=== PATIENT | female | born 1985 | race Caucasian/White ===

== ENCOUNTER 2018-01-18 14:00 | Emergency (ER) | payer OTHER ==
[2018-01-18] MEDS ORDERED: NORMAL SALINE 1000 ML 1,000 ML IV ONE (15:11)
[2018-01-18] MEDS ORDERED: ONDANSETRON HCL INJ/PF 4 MG/2 ML SDV IV ONE (15:11)
--- NOTE | 2018-01-18 15:12 | ER Document Report ---
ED Medical Screen (RME) - General Chief Complaint: Nausea/Vomiting/Diarrhea Stated Complaint: VOMITING Time Seen by Provider: 01/18/18 15:10 Notes: Patient states about 2 weeks ago her and her 5 children all had "a stomach bug". She states ever since she has had intermittent abdominal pain and vomiting. She states today the pain and vomiting became severe. TRAVEL OUTSIDE OF THE [place] IN LAST 30 DAYS: No - Related Data Allergies/Adverse Reactions: No Known Allergies Allergy (Verified 01/18/18 14:01) Physical Exam - Vital signs Vitals: Temp Pulse Resp BP Pulse Ox 97.6 F 64 20 148/80 H 96 01/18/18 14:14 01/18/18 14:14 01/18/18 14:14 01/18/18 14:14 01/18/18 14:14 Course - Vital Signs Vital signs: Temp Pulse Resp BP Pulse Ox 97.6 F 64 20 148/80 H 96 01/18/18 14:14 01/18/18 14:14 01/18/18 14:14 01/18/18 14:14 01/18/18 14:14
[2018-01-18 16:32] LABS: ABSOLUTE MONOCYTES (AUTO) 0.1 10^3/uL (0.1-1.4); ABSOLUTE NEUT (AUTO) 8.2 10^3/uL (1.7-8.2); BASOPHILS % (AUTO) 0.2 % (0-2); HEMATOCRIT 44.7 % (36.0-47.0); LYMPHOCYTES % (AUTO) 10.4 % (13-45); MEAN CORPUSCULAR HEMOGLOBIN 29.2 pg (27.0-33.4); MEAN CORPUSCULAR HGB CONC 33.5 g/dL (32.0-36.0); MEAN CORPUSCULAR VOLUME 87 fl (80-97); MONOCYTES % (AUTO) 1.1 % (3-13); PLATELET COUNT 314 10^3/uL (150-450); RED BLOOD COUNT 5.12 10^6/uL (3.72-5.28); SEGMENTED NEUTROPHILS % (AUTO) 88.3 % (42-78); TOTAL CELLS COUNTED % (AUTO) 100 %; WHITE BLOOD COUNT 9.3 10^3/uL (4.0-10.5)
[2018-01-18 16:57] LABS: ALANINE AMINOTRANSFERASE 38 U/L (9-52); ALBUMIN 5.2 g/dL (3.5-5.0); ALKALINE PHOSPHATASE 68 U/L (38-126); ANION GAP 18 (5-19); ASPARTATE AMINO TRANSFERASE 33 U/L (14-36); BILIRUBIN,DIRECT 0.5 mg/dL (0.0-0.4); BLOOD UREA NITROGEN 12 mg/dL (7-20); CALCIUM 10.8 mg/dL (8.4-10.2); CARBON DIOXIDE 18 mmol/L (22-30); CHLORIDE 107 mmol/L (98-107); GLUCOSE 130 mg/dL (75-110); POTASSIUM 4.5 mmol/L (3.6-5.0); SODIUM 143.3 mmol/L (137-145); TOTAL PROTEIN 8.6 g/dL (6.3-8.2)
[2018-01-18 17:33] VITALS: BP 152/80
--- NOTE | 2018-01-18 18:41 | ER Document Report ---
ED General - General Mode of Arrival: Ambulatory Information source: Patient TRAVEL OUTSIDE OF THE [place] IN LAST 30 DAYS: No <ARIAN BOLDEN - Last Filed: 01/18/18 18:48> <ALVAREZ JON - Last Filed: 01/18/18 23:43> - General Chief Complaint: Nausea/Vomiting/Diarrhea Stated Complaint: VOMITING Time Seen by Provider: 01/18/18 15:10 Notes: Patient is a 32 year old male presenting to the emergency department complaining of multiple symptoms including abdominal pain, vomiting and diarrhea onset 2 weeks ago worsening today. Patient states approximately 2 weeks ago her and her 5 children had a 24 hour bug. Patient states her symptoms have persisted and worsened further stating she has been vomiting all day. Patient denies any hematuria, hematemesis, blood in stool or fevers. Patient states she has a chronic history of GI problems further stating she has a sensitive stomach. Patient states she had a endoscopy performed and nothing has been found. (ARIAN BOLDEN) - Related Data Allergies/Adverse Reactions: No Known Allergies Allergy (Verified 01/18/18 14:01) Past Medical History - General Information source: Patient - Social History Smoking Status: Never Smoker Chew tobacco use (# tins/day): No Frequency of alcohol use: Rare Drug Abuse: Marijuana Family History: Reviewed & Not Pertinent Patient has suicidal ideation: No Patient has homicidal ideation: No <ARIAN BOLDEN - Last Filed: 01/18/18 18:48> Review of Systems - Review of Systems Constitutional: No symptoms reported EENT: No symptoms reported Cardiovascular: No symptoms reported Respiratory: No symptoms reported Gastrointestinal: See HPI, Abdominal pain, Diarrhea, Nausea, Vomiting Genitourinary: No symptoms reported Female Genitourinary: No symptoms reported Musculoskeletal: No symptoms reported Skin: No symptoms reported Hematologic/Lymphatic: No symptoms reported Neurological/Psychological: No symptoms reported -: Yes All other systems reviewed and negative <ARIAN BOLDEN - Last Filed: 01/18/18 18:48> Physical Exam <ARIAN BOLDEN - Last Filed: 01/18/18 18:48> <ALVAREZ JON - Last Filed: 01/18/18 23:43> - Vital signs Vitals: Temp Pulse Resp BP Pulse Ox 97.6 F 64 20 148/80 H 96 01/18/18 14:14 01/18/18 14:14 01/18/18 14:14 01/18/18 14:14 01/18/18 14:14 - Notes Notes: GENERAL: Alert, interacts well. No acute distress. HEAD: Normocephalic, atraumatic. EYES: Pupils equal, round, and reactive to light. Extraocular movements intact. ENT: Oral mucosa moist, tongue midline. NECK: Full range of motion. Supple. Trachea midline. LUNGS: Clear to auscultation bilaterally, no wheezes, rales, or rhonchi. No respiratory distress. HEART: Regular rate and rhythm. No murmurs, gallops, or rubs. ABDOMEN: Soft, non-tender. Non-distended. Bowel sounds present in all 4 quadrants. EXTREMITIES: Moves all 4 extremities spontaneously. NEUROLOGICAL: Alert and oriented x3. Normal speech. PSYCH: Normal affect, normal mood. SKIN: Warm, dry, normal turgor. No rashes or lesions noted. (ARIAN BOLDEN) Course - Laboratory Result Diagrams: 01/18/18 16:10 01/18/18 16:10 <ARIAN BOLDEN - Last Filed: 01/18/18 18:48> - Laboratory Result Diagrams: 01/18/18 16:10 01/18/18 16:10 <ALVAREZ JON - Last Filed: 01/18/18 23:43> - Re-evaluation Re-evalutation: 01/18/18 18:54 CBC unremarkable, CMP shows low CO2 at 18, no renal failure, glucose slightly elevated at 130, lipase normal. Patient feeling much better, no further vomiting, able to drink water without difficulty. Patient states that she vomits most mornings when she wakes up, it is always undigested food. Patient is wondering whether or not she may have gastroparesis, I told her that this is a possibility and she will need to follow-up with GI as an outpatient however we can do a trial of Reglan and Benadryl here and she can continue taking it every night at home. Patient will return for any new or concerning symptoms. ( ALVAREZ JON) - Vital Signs Vital signs: Temp Pulse Resp BP Pulse Ox 98.5 F 62 16 152/80 H 100 01/18/18 17:29 01/18/18 17:29 01/18/18 17:29 01/18/18 17:29 01/18/18 17:29 - Laboratory Laboratory results interpreted by me: 01/18/18 01/18/18 16:10 16:10 Seg Neutrophils % 88.3 H Lymphocytes % 10.4 L Monocytes % 1.1 L Carbon Dioxide 18 L Glucose 130 H Calcium 10.8 H Direct Bilirubin 0.5 H Total Protein 8.6 H Albumin 5.2 H Discharge <ARIAN BOLDEN - Last Filed: 01/18/18 18:48> <ALVAREZ JON - Last Filed: 01/18/18 23:43> - Discharge Clinical Impression: Nausea vomiting and diarrhea, Elevated blood pressure reading Condition: Stable Disposition: HOME, SELF-CARE Additional Instructions: I prescribed you Reglan and Benadryl. This will help with your nausea and vomiting if it is caused by gastroparesis. Please take 1 tablet Reglan along with 1 tablet of [id number] Benadryl every night before you go to sleep. If this does not decrease your abdominal pain in your vomiting in the mornings after 1 week please stop taking it. Otherwise follow-up with a primary care physician or a GI doc and see if they will work you up further for gastroparesis. Return to the emergency department for blood in your vomiting, intractable vomiting, fevers, blood in your stool or any new or concerning symptoms. Prescriptions: Metoclopramide HCl [Reglan 10 mg Tablet] 10 mg PO QHS #14 tablet Referrals: ALVAREZ DUMONT MD [ACTIVE STAFF] - Follow up as needed Scribe Attestation: 01/18/18 23:42 I personally performed the services described in the documentation, reviewed and edited the documentation which was dictated to the scribe in my presence, and it accurately records my words and actions. (ALVAREZ JON) Scribe Documentation - Scribe Written by Jeanette:: Jeanette Dickinson, 01/18/2018 18:47 acting as scribe for :: Viola <ARIAN BOLDEN - Last Filed: 01/18/18 18:48>
[2018-01-18] MEDS ORDERED: METOCLOPRAMIDE HCL INJ/PF 10 MG/2 ML SDV IM ONE (18:42)
[2018-01-18] MEDS ORDERED: DIPHENHYDRAMINE HCL 50 MG/ML VIAL IM ONE (18:42)
== END 2018-01-18 19:05 | disposition home or self-care (01) ==
LOC: ER 14:00
DX: R11.2 Nausea with vomiting, unspecified (principal); R19.7 Diarrhea, unspecified; R03.0 Elevated blood-pressure reading, without diagnosis of hypertension; R10.9 Unspecified abdominal pain
CPT/HCPCS: 99284; 96372; 96361; 96374; 36415; 83690; 85025; 80053; J1200; J2765; J2405; J7030

== ENCOUNTER → 2018-03-02 | Outpatient (CLI) | payer OTHER ==
--- NOTE | 2018-03-02 15:12 | RADIOLOGY REPORT (SQ) ---
EXAM DESCRIPTION: NM HIDA SCAN WITH CCK COMPLETED DATE/TIME: 03/02/2018 3:03 pm REASON FOR STUDY: ABD PAIN (R10.9) R10.9 UNSPECIFIED ABDOMINAL PAIN COMPARISON: None. RADIONUCLIDE AND DOSE: DOSAGE RADIONUCLIDE: For 0.6 millicuries Tc99m Mebrofenin. DOSAGE CCK: 1.4 micrograms. DOSAGE MORPHINE: Not required. The route of agent administration: Intravenous TECHNIQUE: Serial imaging right upper quadrant up to 60 minutes following injection of radionuclide. CCK injected after gallbladder visualized. LIMITATIONS: None. FINDINGS: LIVER: Normal visualization without areas of photopenia. INTRA AND EXTRAHEPATIC BILE DUCTS: Normal accumulation of activity. GALLBLADDER: Normal visualization. Calculated Ejection Fraction of 9%. Below the normal value of 35% or greater. PHYSICAL RESPONSE: Patients presenting complaint was not reproduced. OTHER: No other significant finding. IMPRESSION: LOW GALLBLADDER EJECTION FRACTION. EVIDENCE FOR BILIARY DYSKINESIS. NO CYSTIC OR COMMO N DUCT OBSTRUCTION. TECHNICAL DOCUMENTATION: JOB ID: [id number] [employer]- All Rights Reserved Reading location - IP/workstation name: [email or web address]
== END ==
LOC: RAD 12:22
PROVIDERS: ATTEND Internal Medicine Gastroenterology
DX: R10.9 Unspecified abdominal pain (principal)
CPT/HCPCS: 78227; J2805; A9537; Q9969

== ENCOUNTER 2018-05-01 14:50 | Emergency (ER) | payer OTHER ==
[2018-05-01 15:01] VITALS: BP 144/90
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
[2018-05-01] MEDS ORDERED: IBUPROFEN 800 MG TABLET PO ONE (15:36)
--- NOTE | 2018-05-01 15:55 | RADIOLOGY REPORT (SQ) ---
EXAM DESCRIPTION: SHOULDER LEFT 2 OR MORE VIEWS COMPLETED DATE/TIME: 05/01/2018 3:22 pm REASON FOR STUDY: INJURY COMPARISON: None. NUMBER OF VIEWS: Three views. TECHNIQUE: Internal rotation, external rotation, and Y view images acquired of the left shoulder. LIMITATIONS: None. FINDINGS: MINERALIZATION: Normal. BONES: In the age-indeterminate Hill-Sachs compression deformity is present. JOINTS: No dislocation. VISUALIZED LUNGS AND RIBS: No pneumothorax. No rib fracture. SOFT TISSUES: No radiopaque foreign body. OTHER: No other significant finding. IMPRESSION: Age-indeterminate Hill-Sachs compression deformity. Normal glenohumeral alignment. TECHNICAL DOCUMENTATION: JOB ID: [id number] [employer]- All Rights Reserved Reading location - IP/workstation name: [email or web address]
== END 2018-05-01 16:25 | disposition home or self-care (01) ==
LOC: ER 14:50
DX: S42.292A Other displaced fracture of upper end of left humerus, initial encounter for closed fracture (principal); S43.005A Unspecified dislocation of left shoulder joint, initial encounter; F17.200 Nicotine dependence, unspecified, uncomplicated; X50.1XXA Overexertion from prolonged static or awkward postures, initial encounter
CPT/HCPCS: 99283

== ENCOUNTER 2018-06-06 12:28 | Inpatient (IN) | payer OTHER ==
[2018-06-06] MEDS ORDERED: PIPERACILLIN/TAZOBACTAM 3.375 GM VIAL IV ONE ×2 (13:35→21:47)
--- NOTE | 2018-06-06 13:35 | ER Document Report ---
ED Medical Screen (RME) - General Chief Complaint: Puncture Wound Stated Complaint: LEFT FOOT PAIN/STEPPED ON A NAIL Time Seen by Provider: 06/06/18 13:28 Mode of Arrival: Ambulatory Information source: Patient, [facility] Records Notes: 32-year-old female with no reported past medical history presents with left foot pain, swelling and erythema. Patient states that yesterday she stepped on a rahul nail. Tetanus is up-to-date. I have greeted and performed a rapid initial assessment of this patient. A comprehensive ED assessment and evaluation of the patient, analysis of test results and completion of medical decision making process we will be contacted by additional ED providers. PHYSICAL EXAMINATION: GENERAL: Well-appearing, well-nourished and in no acute distress. HEAD: Atraumatic, normocephalic. EYES: Pupils equal round extraocular movements intact, conjunctiva are normal. ENT: Nares patent NECK: Normal range of motion LUNGS: No respiratory distress Musculoskeletal: Left foot with puncture wound on the plantar aspect with erythematous streaking up the leg. NEUROLOGICAL: Normal speech, normal gait. PSYCH: Normal mood, normal affect. SKIN: Warm, Dry, normal turgor, no rashes or lesions noted. TRAVEL OUTSIDE OF THE [place] IN LAST 30 DAYS: No - HPI Onset: Yesterday Onset/Duration: Sudden Quality of pain: Achy, Throbbing Severity: Mild Associated Symptoms: denies: Fever Exacerbated by: Movement, Walking Relieved by: Denies Similar symptoms previously: No Recently seen / treated by doctor: No - Related Data Smoking: Non-smoker Frequency of alcohol use: None Drug Abuse: None Allergies/Adverse Reactions: No Known Allergies Allergy (Verified 06/06/18 13:26) Past Medical History - Social History Chew tobacco use (# tins/day): No Frequency of alcohol use: None Drug Abuse: Marijuana Renal/ Medical History: Denies: Hx Peritoneal Dialysis Physical Exam - Vital signs Vitals: Temp Pulse Resp BP Pulse Ox 97.8 F 91 16 126/86 H 100 06/06/18 12:54 06/06/18 12:54 06/06/18 12:54 06/06/18 12:54 06/06/18 12:54 Course - Vital Signs Vital signs: Temp Pulse Resp BP Pulse Ox 97.8 F 91 16 126/86 H 100 06/06/18 12:54 06/06/18 12:54 06/06/18 12:54 06/06/18 12:54 06/06/18 12:54 Doctor's Discharge - Discharge Referrals: ALVAREZ DUMONT MD [Primary Care Provider] - Follow up as needed
[2018-06-06 14:14] LABS: ABSOLUTE EOSINOPHILS # (AUTO) 0.1 10^3/uL (0.0-0.6); ABSOLUTE LYMPHOCYTES (AUTO) 1.8 10^3/uL (0.5-4.7); ABSOLUTE MONOCYTES (AUTO) 0.5 10^3/uL (0.1-1.4); ABSOLUTE NEUT (AUTO) 8.4 10^3/uL (1.7-8.2); BASOPHILS % (AUTO) 0.2 % (0-2); EOSINOPHILS % (AUTO) 0.7 % (0-6); HEMATOCRIT 44.9 % (36.0-47.0); LYMPHOCYTES % (AUTO) 17.1 % (13-45); MEAN CORPUSCULAR HGB CONC 33.5 g/dL (32.0-36.0); MEAN CORPUSCULAR VOLUME 90 fl (80-97); MONOCYTES % (AUTO) 4.4 % (3-13); PLATELET COUNT 225 10^3/uL (150-450); RED BLOOD COUNT 5.02 10^6/uL (3.72-5.28); RED CELL DISTRIBUTION WIDTH 13.2 % (11.5-14.0); SEGMENTED NEUTROPHILS % (AUTO) 77.6 % (42-78); TOTAL CELLS COUNTED % (AUTO) 100 %; WHITE BLOOD COUNT 10.8 10^3/uL (4.0-10.5)
[2018-06-06] MEDS ORDERED: HYDROMORPHONE HCL INJ/PF 2 MG/ML AMPULE IV ONE (14:38)
[2018-06-06] MEDS ORDERED: ONDANSETRON HCL INJ/PF 4 MG/2 ML SDV IV ONE (14:38)
[2018-06-06 14:43] LABS: ALANINE AMINOTRANSFERASE 31 U/L (9-52); ALBUMIN 5.4 g/dL (3.5-5.0); ALKALINE PHOSPHATASE 63 U/L (38-126); ANION GAP 19 (5-19); ASPARTATE AMINO TRANSFERASE 23 U/L (14-36); BILIRUBIN,DIRECT 0.3 mg/dL (0.0-0.4); BILIRUBIN,TOTAL 0.9 mg/dL (0.2-1.3); BLOOD UREA NITROGEN 9 mg/dL (7-20); CALCIUM 9.9 mg/dL (8.4-10.2); CARBON DIOXIDE 23 mmol/L (22-30); CHLORIDE 104 mmol/L (98-107); GLUCOSE 95 mg/dL (75-110); POTASSIUM 4.2 mmol/L (3.6-5.0); SODIUM 145.8 mmol/L (137-145); TOTAL PROTEIN 8.9 g/dL (6.3-8.2)
[2018-06-06] MEDS ORDERED: VANCOMYCIN HCL INJ 1000 MG VIAL IV ONE (14:52)
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
--- NOTE | 2018-06-06 15:35 | RADIOLOGY REPORT (SQ) ---
EXAM DESCRIPTION: FOOT LEFT COMPLETE COMPLETED DATE/TIME: 06/06/2018 3:16 pm REASON FOR STUDY: puncture wound COMPARISON: None. NUMBER OF VIEWS: Three views. TECHNIQUE: AP, lateral and oblique radiographic images acquired of the left foot. LIMITATIONS: None. FINDINGS: MINERALIZATION: Normal. BONES: No acute fracture or dislocation. No worrisome bone lesions. JOINTS: No effusions. SOFT TISSUES: No soft tissue swelling. No foreign body. OTHER: No other significant finding. IMPRESSION: No evidence of retained radiopaque foreign body or acute osseous injury. TECHNICAL DOCUMENTATION: JOB ID: [id number] [employer]- All Rights Reserved Reading location - IP/workstation name: [email or web address]
[2018-06-06] MEDS ORDERED: PROMETHAZINE HCL INJ 25 MG/1 ML VIAL IV PRN (16:22)
[2018-06-06] MEDS ORDERED: TEMAZEPAM 7.5 MG CAPSULE PO PRN (16:22)
[2018-06-06] MEDS ORDERED: IPRATROPIUM/ALBUTEROL 0.5-2.5 MG/3 ML AMPUL NEB PRN (16:22)
[2018-06-06] MEDS ORDERED: ACETAMINOPHEN 325 MG TABLET PO PRN (16:22)
[2018-06-06] MEDS ORDERED: VANCOMYCIN HCL 0 MG in DEXTROSE 5%-WATER 250 ML IV NR (16:30)
[2018-06-06] MEDS ORDERED: VANCOMYCIN HCL 1,500 MG in DEXTROSE 5%-WATER 250 ML IV ONE (17:00)
[2018-06-06] MEDS ORDERED: VANCOMYCIN HCL INJ 1000 MG VIAL IV PRN (17:10)
[2018-06-06] MEDS ORDERED: VANCOMYCIN HCL 1,750 MG in DEXTROSE 5%-WATER 500 ML IV ONE (18:00)
[2018-06-06] MEDS ORDERED: PIPERACILLIN SODIUM/TAZOBACTAM 3.375 GM in NORMAL SALINE 100 ML IV SCH (18:00)
--- NOTE | 2018-06-06 18:01 | PDOC H&P ---
History of Present Illness Admission Date/PCP: 06/06/18 15:54 ALVAREZ DUMONT Patient complains of: Swelling and pain left foot History of Present Illness: EDGAR HAILE is a 32 year old female Patient presents emergency room with complaints of stepping on a nail yesterday was barefoot she says she normally goes barefoot due to neuropathy. She pulled the nail out and then she started to notice some redness and swelling this morning at the site extending posteriorly to her ankle. There is no fever nausea vomiting. Tetanus shot is apparently up-to-date. She denies any other significant medical history. Foot x-ray reveals no significant findings Past Medical History Cardiac Medical History: Reports: Other - Neuropathy Past Surgical History Past Surgical History: Reports: None Social History Information Source: Patient Smoking Status: Never Smoker - Advance Directive Resuscitation Status: Full Code Family History Family History: Reviewed & Not Pertinent Parental Family History Reviewed: Yes Children Family History Reviewed: NA Sibling(s) Family History Reviewed.: NA Medication/Allergy Home Medications: Dextroamphetamine/Amphetamine [Adderall 20 mg Tablet] 1 tab PO DAILYP PRN Allergies/Adverse Reactions: No Known Allergies Allergy (Verified 06/06/18 15:58) Review of Systems All systems: reviewed and no additional remarkable complaints except as stated Physical Exam Vital Signs: Temp Pulse Resp BP Pulse Ox 97.8 F 91 16 126/86 H 98 06/06/18 12:54 06/06/18 12:54 06/06/18 12:54 06/06/18 12:54 06/06/18 17:06 General appearance: PRESENT: no acute distress, well-developed, well-nourished Head exam: PRESENT: atraumatic, normocephalic Eye exam: PRESENT: conjunctiva pink, EOMI, PERRLA. ABSENT: scleral icterus Ear exam: PRESENT: normal external ear exam Mouth exam: PRESENT: moist, tongue midline Neck exam: ABSENT: carotid bruit, JVD, lymphadenopathy, thyromegaly Respiratory exam: PRESENT: clear to auscultation gabo. ABSENT: rales, rhonchi, wheezes Cardiovascular exam: PRESENT: RRR. ABSENT: diastolic murmur, rubs, systolic murmur Pulses: PRESENT: normal dorsalis pedis pul Vascular exam: PRESENT: normal capillary refill GI/Abdominal exam: PRESENT: normal bowel sounds, soft. ABSENT: distended, guarding, mass, organolmegaly, rebound, tenderness Rectal exam: PRESENT: deferred Extremities exam: PRESENT: full ROM, tenderness, other - Surrounding erythema and tenderness around the mid foot on the plantar aspect with spreading lymphangitis towards the left heel. ABSENT: calf tenderness, clubbing, pedal edema Neurological exam: PRESENT: alert, awake, oriented to person, oriented to place , oriented to time, oriented to situation, CN II-XII grossly intact. ABSENT: motor sensory deficit Psychiatric exam: PRESENT: appropriate affect, normal mood. ABSENT: homicidal ideation, suicidal ideation Skin exam: PRESENT: dry, intact, warm. ABSENT: cyanosis, rash Results Laboratory Results: 06/06/18 13:40 06/06/18 13:40 MCV 90 fl (80-97) 06/06/18 13:40 MCH 30.0 pg (27.0-33.4) 06/06/18 13:40 MCHC 33.5 g/dL (32.0-36.0) 06/06/18 13:40 RDW 13.2 % (11.5-14.0) 06/06/18 13:40 Seg Neutrophils % 77.6 % (42-78) 06/06/18 13:40 Lymphocytes % 17.1 % (13-45) 06/06/18 13:40 Monocytes % 4.4 % (3-13) 06/06/18 13:40 Eosinophils % 0.7 % (0-6) 06/06/18 13:40 Basophils % 0.2 % (0-2) 06/06/18 13:40 Absolute Neutrophils 8.4 10^3/uL (1.7-8.2) H 06/06/18 13:40 Absolute Lymphocytes 1.8 10^3/uL (0.5-4.7) 06/06/18 13:40 Absolute Monocytes 0.5 10^3/uL (0.1-1.4) 06/06/18 13:40 Absolute Eosinophils 0.1 10^3/uL (0.0-0.6) 06/06/18 13:40 Absolute Basophils 0.0 10^3/uL (0.0-0.2) 06/06/18 13:40 Chloride 104 mmol/L (98-107) 06/06/18 13:40 Carbon Dioxide 23 mmol/L (22-30) 06/06/18 13:40 Anion Gap 19 (5-19) 06/06/18 13:40 Est GFR ( Amer) > 60 (>60) 06/06/18 13:40 Est GFR (Non-Af Amer) > 60 (>60) 06/06/18 13:40 Glucose 95 mg/dL (75-110) 06/06/18 13:40 Calcium 9.9 mg/dL (8.4-10.2) 06/06/18 13:40 Total Bilirubin 0.9 mg/dL (0.2-1.3) 06/06/18 13:40 AST 23 U/L (14-36) 06/06/18 13:40 ALT 31 U/L (9-52) 06/06/18 13:40 Alkaline Phosphatase 63 U/L (38-126) 06/06/18 13:40 Total Protein 8.9 g/dL (6.3-8.2) H 06/06/18 13:40 Albumin 5.4 g/dL (3.5-5.0) H 06/06/18 13:40 Impressions: Foot X-Ray 06/06/18 13:34 IMPRESSION: No evidence of retained radiopaque foreign body or acute osseous injury. Assessment & Plan - Diagnosis (1) Cellulitis of left foot Is this a current diagnosis for this admission?: Yes Plan: Continue with vancomycin and Zosyn started in the emergency room. Surgical consult has been requested for further evaluation. (2) Lymphangitis Is this a current diagnosis for this admission?: Yes Plan: Pain management - Time Time Spent: 30 to 50 Minutes Medications reviewed and adjusted accordingly: Yes Anticipated discharge: Home Within: within 48 hours - Inpatient Certification Based on my medical assessment, after consideration of the patient's comorbidities, presenting symptoms, or acuity I expect that the services needed warrant INPATIENT care.: Yes Medical Necessity: Need for IV Antibiotics, Risk of Complication if Not Cared For in Hospital
[2018-06-06] MEDS: OXYCODONE-ACETAMINOPHEN 5-325 MG TABLET PO PRN ×2 (18:26→22:37)
[2018-06-06] MEDS: RINGERS SOLUTION,LACTATED 1,000 ML IV PRN (22:40)
[2018-06-06] MEDS: PIPERACILLIN SODIUM/TAZOBACTAM 3.375 GM in NORMAL SALINE 100 ML IV SCH (22:40)
--- NOTE | 2018-06-06 22:58 | PDOC CONSULTATION ---
Consultation Consult Date: 06/06/18 Consult reason:: cellulitis left foot History of Present Illness Admission Date/PCP: 06/06/18 15:54 ALVAREZ DUMONT Patient complains of: left foot pains History of Present Illness: EDGAR HAILE is a 32 year old female who stepped on a nail while walking barefoot yesterday morning. Claims has neuropathy and both feet feels warm all the time that she does not wear shoes because they make her more uncomfortable. Denies DM. Her mother just recently diagnosed with DM. Past Medical History Cardiac Medical History: Reports: Other - Neuropathy Past Surgical History Past Surgical History: Reports: None Social History Smoking Status: Never Smoker Frequency of Alcohol Use: None Hx Recreational Drug Use: Yes - MARIJ[place] Drugs: None Hx Prescription Drug Abuse: No - Advance Directive Resuscitation Status: Full Code Family History Family History: Reviewed & Not Pertinent Parental Family History Reviewed: Yes - mother with DM Children Family History Reviewed: No Sibling(s) Family History Reviewed.: No Medication/Allergy Home Medications: Dextroamphetamine/Amphetamine [Adderall 20 mg Tablet] 1 tab PO DAILYP PRN Allergies/Adverse Reactions: No Known Allergies Allergy (Verified 06/06/18 15:58) Review of Systems Constitutional: PRESENT: other - no fever/chills Eyes: PRESENT: other - no visual /hearing changes Cardiovascular: PRESENT: other - no cough/chest pains Gastrointestinal: PRESENT: other - no pains Genitourinary: PRESENT: other - no dysuria Integumentary: PRESENT: erythema - around puncture site left foot Neurological: PRESENT: other - neuropathy both feet Hematologic/Lymphatic: PRESENT: other - no easy bruising Physical Exam Vital Signs: Temp Pulse Resp BP Pulse Ox 97.9 F 71 17 121/84 100 06/06/18 20:00 06/06/18 20:00 06/06/18 20:00 06/06/18 20:00 06/06/18 20:00 General appearance: PRESENT: no acute distress Head exam: PRESENT: atraumatic Eye exam: PRESENT: conjunctiva pink Mouth exam: PRESENT: moist Neck exam: PRESENT: full ROM Respiratory exam: PRESENT: clear to auscultation gabo Cardiovascular exam: PRESENT: RRR Pulses: PRESENT: normal radial pulses Vascular exam: PRESENT: normal capillary refill GI/Abdominal exam: PRESENT: soft Rectal exam: PRESENT: deferred Extremities exam: PRESENT: other - puncture site midpart of plantar area with surrounding erythema and swollen feet. Short area of reddish streak medial ankle area. Tender on pressure at the puncture site but rest of foot non tender which patient claims from neuropathy Psychiatric exam: PRESENT: appropriate affect Skin exam: PRESENT: erythema - lft foot Results Impressions: Foot X-Ray 06/06/18 13:34 IMPRESSION: No evidence of retained radiopaque foreign body or acute osseous injury. Assessment & Plan - Diagnosis (1) Puncture wound of left foot Is this a current diagnosis for this admission?: Yes - Time Time Spent: 30 to 50 Minutes - Inpatient Certification Medical Necessity: Need for IV Antibiotics, Risk of Complication if Not Cared For in Hospital - Plan Summary Plan Summary: Leg elevation left foot to try to decrease edema Continue IV antibiotics No abscess to drain at this time.
[2018-06-07] MEDS ORDERED: VANCOMYCIN HCL INJ 1000 MG VIAL ONE (01:35)
[2018-06-07] MEDS ORDERED: VANCOMYCIN HCL 1,250 MG in DEXTROSE 5%-WATER 250 ML IV SCH ×4 (02:00)
[2018-06-07] MEDS: OXYCODONE-ACETAMINOPHEN 5-325 MG TABLET PO PRN ×5 (02:38→20:12)
[2018-06-07] MEDS: PIPERACILLIN SODIUM/TAZOBACTAM 3.375 GM in NORMAL SALINE 100 ML IV SCH ×4 (04:46→20:13)
[2018-06-07 06:27] LABS: HEMATOCRIT 37.1 % (36.0-47.0); HEMOGLOBIN 12.2 g/dL (12.0-15.5); MEAN CORPUSCULAR HEMOGLOBIN 29.4 pg (27.0-33.4); MEAN CORPUSCULAR HGB CONC 32.8 g/dL (32.0-36.0); MEAN CORPUSCULAR VOLUME 90 fl (80-97); PLATELET COUNT 171 10^3/uL (150-450); RED BLOOD COUNT 4.13 10^6/uL (3.72-5.28)
[2018-06-07 06:40] LABS: ANION GAP 10 (5-19); CALCIUM 8.7 mg/dL (8.4-10.2); CARBON DIOXIDE 27 mmol/L (22-30); CHLORIDE 105 mmol/L (98-107); GLUCOSE 91 mg/dL (75-110); POTASSIUM 3.7 mmol/L (3.6-5.0); SODIUM 142.2 mmol/L (137-145)
[2018-06-07 06:41] LABS: BLOOD UREA NITROGEN 8 mg/dL (7-20)
[2018-06-07] MEDS: RINGERS SOLUTION,LACTATED 1,000 ML IV PRN ×2 (10:11→22:10)
[2018-06-07] MEDS: ENOXAPARIN SODIUM INJ 40 MG/0.4 ML DISP.SYRIN SUBCUT SCH (10:13)
[2018-06-07] MEDS: VANCOMYCIN HCL 750 MG in DEXTROSE 5%-WATER 250 ML IV SCH ×2 (14:48→22:07)
[2018-06-07] MEDS ORDERED: PROMETHAZINE HCL INJ 25 MG/1 ML VIAL IV PRN (16:00)
[2018-06-08] MEDS: PIPERACILLIN SODIUM/TAZOBACTAM 3.375 GM in NORMAL SALINE 100 ML IV SCH ×4 (02:31→21:56)
[2018-06-08] MEDS: OXYCODONE-ACETAMINOPHEN 5-325 MG TABLET PO PRN ×2 (05:00→20:53)
[2018-06-08] MEDS: VANCOMYCIN HCL 750 MG in DEXTROSE 5%-WATER 250 ML IV SCH (05:00)
[2018-06-08] MEDS ORDERED: LIDOCAINE 0.5% INJ-PF (5 MG/ML) 50 ML SDV ONE (10:27)
[2018-06-08] MEDS ORDERED: MIDAZOLAM 2 MG/2 ML INJ ONE (10:48)
[2018-06-08] MEDS ORDERED: ONDANSETRON HCL INJ/PF 4 MG/2 ML SDV ONE (10:48)
[2018-06-08] MEDS ORDERED: FENTANYL CITRATE INJ/PF 100 MCG/2 ML AMPUL ONE (10:48)
[2018-06-08] MEDS ORDERED: PROPOFOL INJ 200 MG/20 ML VIAL IV ONE (10:48)
[2018-06-08] MEDS ORDERED: MORPHINE SULFATE 10 MG/ML INJ ONE (10:49)
[2018-06-08] MEDS ORDERED: KETOROLAC TROMETHAMINE INJ/PF 30 MG/1 ML SDV ONE (11:40)
[2018-06-08] MEDS ORDERED: ACETAMINOPHEN 1,000 MG/100 ML RTUPB IV ONE (11:41)
[2018-06-08] MEDS: FENTANYL CITRATE INJ/PF 100 MCG/2 ML AMPUL ONE ×2 (11:55→12:00)
--- NOTE | 2018-06-08 11:56 | OPERATIVE REPORT E ---
Operative Report NAME: EDGAR HAILE : 1985 AGE: 32Y DATE OF SURGERY: 06/08/2018 ROOM: 207 PREOPERATIVE DIAGNOSIS: Abscess of the left foot, plantar area. POSTOPERATIVE DIAGNOSIS: Abscess of the left foot, plantar area. PROCEDURE: Incision and drainage, abscess, left foot, plantar area. SURGEON: HONG MONK MD ANESTHESIA: General, local. INDICATION: This is a 32-year-old female who was walking barefoot at home and she stepped on a nail. She was then admitted 2 days ago, and given IV antibiotics. This morning, puncture sites more tender and swelling right at the puncture site and obviously has an abscess. She was then taken to the OR. DESCRIPTION OF PROCEDURE: After adequate general anesthesia, the left foot was then prepped and draped in the usual sterile fashion. Local anesthesia with 1% lidocaine was injected around the area. This was done for pain management after her surgery. A cruciate incision was then made along the puncture site and pus extruded out. A specimen was then sent for culture. The area was subsequently probed with a hemostat and puncture site appears to go down at least 2 cm, which was quite deep. More purulent material extruded out after probe. The area was subsequently irrigated with saline solution. Next, further squeezing of the area showed no more discharge or drainage. The area was subsequently packed with quarter-inch Iodoform gauze. A sterile dressing was placed over the operative site. Needle, instrument, and sponge counts were all correct and estimated blood loss was about 1-2 mL. Patient then brought to the recovery room in satisfactory condition. DICTATING PHYSICIAN: HONG MONK M.D. [id number] PHY#: [id number] ID: [id number] JOB#: [id number] ACCT: [id number] cc:HONG MONK M.D. >
[2018-06-08] MEDS ORDERED: PROMETHAZINE HCL INJ 25 MG/1 ML VIAL IV PRN ×2 (12:23)
[2018-06-08] MEDS ORDERED: MORPHINE SULFATE 10 MG/ML INJ IV PRN (12:23)
[2018-06-08] MEDS ORDERED: FENTANYL CITRATE INJ/PF 100 MCG/2 ML AMPUL IV PRN ×3 (12:23)
[2018-06-08] MEDS ORDERED: MEPERIDINE HCL/PF INJ 25 MG/1 ML DISP.SYRIN IV PRN (12:23)
[2018-06-08] MEDS ORDERED: DIPHENHYDRAMINE HCL 50 MG/ML VIAL IV PRN (12:23)
[2018-06-08 14:10] LABS: VANCOMYCIN,TROUGH 8.3 ug/mL (5.0-20.0)
[2018-06-08] MEDS: RINGERS SOLUTION,LACTATED 1,000 ML IV PRN (14:29)
[2018-06-08 16:07] LABS: ABSOLUTE LYMPHOCYTES (AUTO) 1.9 10^3/uL (0.5-4.7); ABSOLUTE MONOCYTES (AUTO) 0.4 10^3/uL (0.1-1.4); ABSOLUTE NEUT (AUTO) 6.1 10^3/uL (1.7-8.2); BASOPHILS % (AUTO) 0.4 % (0-2); EOSINOPHILS % (AUTO) 0.4 % (0-6); HEMATOCRIT 35.8 % (36.0-47.0); HEMOGLOBIN 12.2 g/dL (12.0-15.5); LYMPHOCYTES % (AUTO) 22.2 % (13-45); MEAN CORPUSCULAR HEMOGLOBIN 30.3 pg (27.0-33.4); MEAN CORPUSCULAR HGB CONC 34.2 g/dL (32.0-36.0); MEAN CORPUSCULAR VOLUME 89 fl (80-97); MONOCYTES % (AUTO) 4.6 % (3-13); PLATELET COUNT 181 10^3/uL (150-450); RED BLOOD COUNT 4.03 10^6/uL (3.72-5.28); SEGMENTED NEUTROPHILS % (AUTO) 72.4 % (42-78); TOTAL CELLS COUNTED % (AUTO) 100 %; WHITE BLOOD COUNT 8.4 10^3/uL (4.0-10.5)
--- NOTE | 2018-06-08 16:08 | PDOC PROGRESS REPORT ---
Subjective Progress Note for:: 06/08/18 Subjective:: I was just informed today by Ms Raisa that this pt was admitted over the weekend. She has incision and drainage of left foot abscess today by general surgeon,Dr Vazquez. Pt seen at bedside and she is still having pain at left foot , which is covered with dressing. Reason For Visit: CELLULITIS Physical Exam Vital Signs: Temp Pulse Resp BP Pulse Ox 97.9 F 67 16 128/73 H 96 06/08/18 15:02 06/08/18 15:02 06/08/18 15:02 06/08/18 15:02 06/08/18 15:02 Intake & Output 06/07/18 06/08/18 06/09/18 06:59 06:59 06:59 Intake Total 200 3500 1700 Output Total 5 Balance 200 3500 1695 Weight 68.1 kg 66.9 kg General appearance: PRESENT: no acute distress, cooperative, well-developed, well-nourished Head exam: PRESENT: atraumatic, normocephalic Eye exam: PRESENT: EOMI, PERRLA Ear exam: PRESENT: normal external ear exam, TM's normal bilaterally Mouth exam: PRESENT: neck supple, tongue midline Neck exam: PRESENT: full ROM Respiratory exam: PRESENT: clear to auscultation gabo, symmetrical Cardiovascular exam: PRESENT: +S1, +S2 Pulses: PRESENT: +2 pedal pulses bilateral GI/Abdominal exam: PRESENT: normal bowel sounds, soft Rectal exam: PRESENT: deferred Additional comments: Left foot- covered with dressing, tender, limitation of movement. Musculoskeletal exam: PRESENT: tenderness Neurological exam: PRESENT: alert, awake, oriented to person, oriented to place , oriented to time Psychiatric exam: PRESENT: normal mood Results Laboratory Results: 06/08/18 13:34 06/08/18 13:34 Creatinine 0.74 Est GFR ( Amer) > 60 Est GFR (Non-Af Amer) > 60 Impressions: Foot X-Ray 06/06/18 13:34 IMPRESSION: No evidence of retained radiopaque foreign body or acute osseous injury. Assessment & Plan - Diagnosis (1) Cellulitis of left foot Is this a current diagnosis for this admission?: Yes Plan: Ct with Zosyn 3.375 mg q6h IV; Vancomycin IV as per [facility] protocol; Tylenol 650 mg q4h prn po; Percocet 5/[address] with dressing as recommended. F/ U wound culture; F/u Dr Vazquez. (2) DVT prophylaxis Is this a current diagnosis for this admission?: Yes Plan: Ct with Lovenox 40 mg qd subcut; SCD. - Time Time Spent with patient: 35 or more minutes Anticipated discharge: Home Within: within 72 hours
[2018-06-08 16:17] LABS: ALANINE AMINOTRANSFERASE 29 U/L (9-52); ALBUMIN 3.5 g/dL (3.5-5.0); ALKALINE PHOSPHATASE 43 U/L (38-126); ANION GAP 12 (5-19); ASPARTATE AMINO TRANSFERASE 20 U/L (14-36); BILIRUBIN,DIRECT 0.3 mg/dL (0.0-0.4); BILIRUBIN,TOTAL 0.7 mg/dL (0.2-1.3); BLOOD UREA NITROGEN 6 mg/dL (7-20); CALCIUM 8.9 mg/dL (8.4-10.2); CARBON DIOXIDE 25 mmol/L (22-30); CHLORIDE 107 mmol/L (98-107); GLUCOSE 89 mg/dL (75-110); POTASSIUM 3.8 mmol/L (3.6-5.0); SODIUM 143.9 mmol/L (137-145); TOTAL PROTEIN 6.3 g/dL (6.3-8.2)
[2018-06-08] MEDS: VANCOMYCIN HCL 1,000 MG in DEXTROSE 5%-WATER 250 ML IV SCH (17:30)
[2018-06-09] MEDS: RINGERS SOLUTION,LACTATED 1,000 ML IV PRN ×2 (00:26→20:29)
[2018-06-09] MEDS: OXYCODONE-ACETAMINOPHEN 5-325 MG TABLET PO PRN ×2 (01:09→06:29)
[2018-06-09] MEDS: VANCOMYCIN HCL 1,000 MG in DEXTROSE 5%-WATER 250 ML IV SCH ×3 (01:10→18:31)
[2018-06-09] MEDS: PIPERACILLIN SODIUM/TAZOBACTAM 3.375 GM in NORMAL SALINE 100 ML IV SCH ×4 (03:14→20:48)
--- NOTE | 2018-06-09 06:18 | PDOC PROGRESS REPORT ---
Subjective Progress Note for:: 06/09/18 Subjective:: Pains left foot Reason For Visit: CELLULITIS Physical Exam Vital Signs: Temp Pulse Resp BP Pulse Ox 98.6 F 68 15 118/79 98 06/09/18 04:50 06/09/18 04:50 06/09/18 04:50 06/09/18 04:50 06/09/18 04:55 Intake & Output 06/07/18 06/08/18 06/09/18 06:59 06:59 06:59 Intake Total 200 3500 3385 Output Total 5 Balance 200 3500 3380 Weight 68.1 kg 66.9 kg 68.9 kg Exam: Packing removed. No more drainage. Still quite red around I&D site. Results Laboratory Results: 06/08/18 13:34 06/08/18 13:34 06/08/18 06/08/18 06/08/18 13:34 13:34 13:34 WBC 8.4 RBC 4.03 Hgb 12.2 Hct 35.8 L MCV 89 MCH 30.3 MCHC 34.2 RDW 13.0 Plt Count 181 Seg Neutrophils % 72.4 Lymphocytes % 22.2 Monocytes % 4.6 Eosinophils % 0.4 Basophils % 0.4 Absolute Neutrophils 6.1 Absolute Lymphocytes 1.9 Absolute Monocytes 0.4 Absolute Eosinophils 0.0 Absolute Basophils 0.0 Sodium 143.9 Potassium 3.8 Chloride 107 Carbon Dioxide 25 Anion Gap 12 BUN 6 L Creatinine 0.74 0.76 Est GFR ( Amer) > 60 > 60 Est GFR (Non-Af Amer) > 60 > 60 Glucose 89 Calcium 8.9 Total Bilirubin 0.7 AST 20 ALT 29 Alkaline Phosphatase 43 Total Protein 6.3 Albumin 3.5 Impressions: Foot X-Ray 06/06/18 13:34 IMPRESSION: No evidence of retained radiopaque foreign body or acute osseous injury. Assessment & Plan - Diagnosis (1) Puncture wound of left foot Is this a current diagnosis for this admission?: Yes - Time Time Spent with patient: 15-24 minutes - Inpatient Certification Medical Necessity: Need for Pain Control, Need for IV Antibiotics - Plan Summary Plan Summary: Await culture results prior to discharge to give appropriate antibiotics Meantime, continue same IV antibiotics When discharge, follow up at surgical clinic in 2 weeks
[2018-06-09] MEDS ORDERED: ONDANSETRON HCL INJ/PF 4 MG/2 ML SDV ONE (06:26)
[2018-06-09 07:04] LABS: ABSOLUTE EOSINOPHILS # (AUTO) 0.2 10^3/uL (0.0-0.6); ABSOLUTE MONOCYTES (AUTO) 0.5 10^3/uL (0.1-1.4); ABSOLUTE NEUT (AUTO) 4.3 10^3/uL (1.7-8.2); BASOPHILS % (AUTO) 0.5 % (0-2); EOSINOPHILS % (AUTO) 2.3 % (0-6); HEMATOCRIT 33.1 % (36.0-47.0); HEMOGLOBIN 11.5 g/dL (12.0-15.5); LYMPHOCYTES % (AUTO) 28.4 % (13-45); MEAN CORPUSCULAR HEMOGLOBIN 30.5 pg (27.0-33.4); MEAN CORPUSCULAR HGB CONC 34.6 g/dL (32.0-36.0); MEAN CORPUSCULAR VOLUME 88 fl (80-97); MONOCYTES % (AUTO) 7.1 % (3-13); PLATELET COUNT 158 10^3/uL (150-450); RED BLOOD COUNT 3.76 10^6/uL (3.72-5.28); RED CELL DISTRIBUTION WIDTH 12.4 % (11.5-14.0); SEGMENTED NEUTROPHILS % (AUTO) 61.7 % (42-78); TOTAL CELLS COUNTED % (AUTO) 100 %; WHITE BLOOD COUNT 6.9 10^3/uL (4.0-10.5)
[2018-06-09 07:21] LABS: ALBUMIN 3.1 g/dL (3.5-5.0); ANION GAP 11 (5-19); BLOOD UREA NITROGEN 9 mg/dL (7-20); CALCIUM 8.5 mg/dL (8.4-10.2); CARBON DIOXIDE 24 mmol/L (22-30); CHLORIDE 108 mmol/L (98-107); GLUCOSE 90 mg/dL (75-110); SODIUM 143.1 mmol/L (137-145); TOTAL PROTEIN 5.6 g/dL (6.3-8.2)
[2018-06-09 07:22] LABS: ALANINE AMINOTRANSFERASE 35 U/L (9-52); ALKALINE PHOSPHATASE 42 U/L (38-126); ASPARTATE AMINO TRANSFERASE 22 U/L (14-36); BILIRUBIN,DIRECT 0.2 mg/dL (0.0-0.4); BILIRUBIN,TOTAL 0.6 mg/dL (0.2-1.3)
[2018-06-09] MEDS ORDERED: ONDANSETRON HCL INJ/PF 4 MG/2 ML SDV IV PRN (08:20)
[2018-06-09] MEDS ORDERED: ONDANSETRON 4 MG TAB.RAPDIS PO PRN (08:20)
[2018-06-09] MEDS: ENOXAPARIN SODIUM INJ 40 MG/0.4 ML DISP.SYRIN SUBCUT SCH (09:31)
--- NOTE | 2018-06-09 17:04 | PDOC PROGRESS REPORT ---
Subjective Progress Note for:: 06/09/18 Subjective:: The packing was removed today and no new complaints. Her wound culture showed gram negative rodsx2, awaiting final sensitivity results. For possible discharge home tomorrow or thursday. Reason For Visit: CELLULITIS Physical Exam Vital Signs: Temp Pulse Resp BP Pulse Ox 98.0 F 67 16 137/77 H 99 06/09/18 15:58 06/09/18 15:58 06/09/18 15:58 06/09/18 15:58 06/09/18 15:58 Intake & Output 06/08/18 06/09/18 06/10/18 06:59 06:59 06:59 Intake Total 3500 3385 1370 Output Total 5 Balance 3500 3380 1370 Weight 66.9 kg 68.9 kg General appearance: PRESENT: no acute distress, cooperative, well-developed, well-nourished Head exam: PRESENT: atraumatic, normocephalic Eye exam: PRESENT: EOMI, PERRLA Ear exam: PRESENT: normal external ear exam, TM's normal bilaterally Mouth exam: PRESENT: neck supple, tongue midline Cardiovascular exam: PRESENT: +S1, +S2 Pulses: PRESENT: +2 pedal pulses bilateral GI/Abdominal exam: PRESENT: normal bowel sounds, soft Rectal exam: PRESENT: deferred - Left foot covered with dressing, not soaked. Extremities exam: PRESENT: full ROM Musculoskeletal exam: PRESENT: full ROM Neurological exam: PRESENT: alert, awake, oriented to person, oriented to time Psychiatric exam: PRESENT: normal mood Results Laboratory Results: 06/09/18 06:18 06/09/18 06:18 06/09/18 06/09/18 06:18 06:18 WBC 6.9 RBC 3.76 Hgb 11.5 L Hct 33.1 L MCV 88 MCH 30.5 MCHC 34.6 RDW 12.4 Plt Count 158 Seg Neutrophils % 61.7 Lymphocytes % 28.4 Monocytes % 7.1 Eosinophils % 2.3 Basophils % 0.5 Absolute Neutrophils 4.3 Absolute Lymphocytes 2.0 Absolute Monocytes 0.5 Absolute Eosinophils 0.2 Absolute Basophils 0.0 Sodium 143.1 Potassium 4.0 Chloride 108 H Carbon Dioxide 24 Anion Gap 11 BUN 9 Creatinine 1.00 Est GFR ( Amer) > 60 Est GFR (Non-Af Amer) > 60 Glucose 90 Calcium 8.5 Total Bilirubin 0.6 AST 22 ALT 35 Alkaline Phosphatase 42 Total Protein 5.6 L Albumin 3.1 L Impressions: Foot X-Ray 06/06/18 13:34 IMPRESSION: No evidence of retained radiopaque foreign body or acute osseous injury. Assessment & Plan - Diagnosis (1) Cellulitis of left foot Is this a current diagnosis for this admission?: Yes Plan: Ct with Zosyn 3.375 mg q6h IV; Vancom[facility]; Tylenol 650 mg q4h prn po; Percocet 5/[address] with dressing as recommended. F/ U wound culture; F/u Dr Vazquez. (2) DVT prophylaxis Is this a current diagnosis for this admission?: Yes Plan: Ct with Lovenox 40 mg qd subcut; SCD.
[2018-06-09 18:36] LABS: VANCOMYCIN,TROUGH 13.9 ug/mL (5.0-20.0)
[2018-06-09] MEDS ORDERED: SUCCINYLCHOLINE CHLORIDE INJ 200 MG/10 ML VIAL ONE (20:22)
[2018-06-10] MEDS: VANCOMYCIN HCL 1,000 MG in DEXTROSE 5%-WATER 250 ML IV SCH ×2 (01:44→09:31)
[2018-06-10] MEDS: PIPERACILLIN SODIUM/TAZOBACTAM 3.375 GM in NORMAL SALINE 100 ML IV SCH ×2 (03:48→08:37)
[2018-06-10] MEDS: RINGERS SOLUTION,LACTATED 1,000 ML IV PRN (06:56)
[2018-06-10 07:52] LABS: ABSOLUTE EOSINOPHILS # (AUTO) 0.1 10^3/uL (0.0-0.6); ABSOLUTE LYMPHOCYTES (AUTO) 1.7 10^3/uL (0.5-4.7); ABSOLUTE MONOCYTES (AUTO) 0.4 10^3/uL (0.1-1.4); ABSOLUTE NEUT (AUTO) 4.6 10^3/uL (1.7-8.2); BASOPHILS % (AUTO) 0.5 % (0-2); EOSINOPHILS % (AUTO) 1.9 % (0-6); HEMATOCRIT 33.3 % (36.0-47.0); HEMOGLOBIN 11.4 g/dL (12.0-15.5); MEAN CORPUSCULAR HEMOGLOBIN 30.3 pg (27.0-33.4); MEAN CORPUSCULAR HGB CONC 34.2 g/dL (32.0-36.0); MEAN CORPUSCULAR VOLUME 89 fl (80-97); MONOCYTES % (AUTO) 6.1 % (3-13); PLATELET COUNT 170 10^3/uL (150-450); RED BLOOD COUNT 3.77 10^6/uL (3.72-5.28); RED CELL DISTRIBUTION WIDTH 12.4 % (11.5-14.0); SEGMENTED NEUTROPHILS % (AUTO) 66.5 % (42-78); TOTAL CELLS COUNTED % (AUTO) 100 %
[2018-06-10 08:04] LABS: ALANINE AMINOTRANSFERASE 31 U/L (9-52); ALBUMIN 3.3 g/dL (3.5-5.0); ALKALINE PHOSPHATASE 39 U/L (38-126); ANION GAP 11 (5-19); ASPARTATE AMINO TRANSFERASE 24 U/L (14-36); BILIRUBIN,DIRECT 0.3 mg/dL (0.0-0.4); BILIRUBIN,TOTAL 0.5 mg/dL (0.2-1.3); BLOOD UREA NITROGEN 6 mg/dL (7-20); CALCIUM 8.7 mg/dL (8.4-10.2); CARBON DIOXIDE 25 mmol/L (22-30); CHLORIDE 108 mmol/L (98-107); GLUCOSE 88 mg/dL (75-110); POTASSIUM 3.9 mmol/L (3.6-5.0); SODIUM 144.3 mmol/L (137-145); TOTAL PROTEIN 5.9 g/dL (6.3-8.2)
[2018-06-10] MEDS: OXYCODONE-ACETAMINOPHEN 5-325 MG TABLET PO PRN (08:35)
--- NOTE | 2018-06-10 13:03 | PDOC DISCHARGE SUMMARY ---
General - Admit/Disc Date/PCP Admission Date/Primary Care Provider: 06/06/18 15:54 ALVAREZ DUMONT Discharge Date: 06/10/18 - Discharge Diagnosis (1) Cellulitis of left foot Is this a current diagnosis for this admission?: Yes (2) DVT prophylaxis Is this a current diagnosis for this admission?: Yes - Additional Information Resuscitation Status: Full Code Prescriptions: Ciprofloxacin HCl 500 mg PO BID #20 tablet Home Medications: Dextroamphetamine/Amphetamine [Adderall 20 mg Tablet] 1 tab PO DAILYP PRN Ciprofloxacin HCl 500 mg PO BID #20 tablet 06/10/18 History of Present Illness Patient complains of: Left foot painful swelling after nail puncture History of Present Illness: EDGAR HAILE is a 32 year old female with hx of ADHD/Peripheral neuropathy who had nail puncture on her left foot while walking barefoot in the house. She came to ER for eval. and mgt due to progressive worsening of left foot painful swelling. She was admitted by hospitalists. Hospital Course Hospital Course: 32 year old woman who was admitted by hospitalists for left foot cellulitis secondary to nail wound puncture. She had incision and drainage by general surgeon and was on IV antibiotics and analgesics. Her wound culture grew 2 organisms and sensitivity result noted. She will be discharged home today to follow up with general surgeon next week and her PCP afterwards. Pt is in agreement with this plan of care. Physical Exam Vital Signs: Temp Pulse Resp BP Pulse Ox 97.5 F 57 L 15 125/84 100 06/10/18 08:20 06/10/18 08:20 06/10/18 08:20 06/10/18 08:20 06/10/18 08:20 Intake & Output 06/09/18 06/10/18 06/11/18 06:59 06:59 06:59 Intake Total 3385 6470 Output Total 5 Balance 3380 6470 Weight 68.9 kg 70.2 kg General appearance: PRESENT: no acute distress, cooperative, well-developed, well-nourished Head exam: PRESENT: atraumatic, normocephalic Eye exam: PRESENT: EOMI, PERRLA Ear exam: PRESENT: TM's normal bilaterally Mouth exam: PRESENT: moist, neck supple, tongue midline Neck exam: PRESENT: full ROM Respiratory exam: PRESENT: clear to auscultation gabo, symmetrical Cardiovascular exam: PRESENT: +S1, +S2 Pulses: PRESENT: +2 pedal pulses bilateral GI/Abdominal exam: PRESENT: normal bowel sounds, soft Rectal exam: PRESENT: deferred Extremities exam: PRESENT: full ROM Musculoskeletal exam: PRESENT: ambulatory Neurological exam: PRESENT: alert, awake, oriented to person, oriented to place , oriented to time Psychiatric exam: PRESENT: normal mood Results Laboratory Results: 06/10/18 06:37 06/10/18 06:37 06/09/18 06/10/18 06/10/18 18:00 06:37 06:37 WBC 7.0 RBC 3.77 Hgb 11.4 L Hct 33.3 L MCV 89 MCH 30.3 MCHC 34.2 RDW 12.4 Plt Count 170 Seg Neutrophils % 66.5 Lymphocytes % 25.0 Monocytes % 6.1 Eosinophils % 1.9 Basophils % 0.5 Absolute Neutrophils 4.6 Absolute Lymphocytes 1.7 Absolute Monocytes 0.4 Absolute Eosinophils 0.1 Absolute Basophils 0.0 Sodium 144.3 Potassium 3.9 Chloride 108 H Carbon Dioxide 25 Anion Gap 11 BUN 6 L Creatinine 1.01 1.03 Est GFR ( Amer) > 60 > 60 Est GFR (Non-Af Amer) > 60 > 60 Glucose 88 Calcium 8.7 Total Bilirubin 0.5 AST 24 ALT 31 Alkaline Phosphatase 39 Total Protein 5.9 L Albumin 3.3 L 06/08/18 11:15 Foot - Abscess Gram Stain - Final 06/08/18 11:15 Foot - Abscess Wound Culture - Final Aeromonas Hydrophilia Group Klebsiella Pneumoniae No Anaerobic Organisms Impressions: Foot X-Ray 06/06/18 13:34 IMPRESSION: No evidence of retained radiopaque foreign body or acute osseous injury. Qualifiers - * PATIENT BEING DISCHARGED WITH ANY OF THE FOLLOWING DIAGNOSIS: No
[2018-06-10 13:17] VITALS: BP 140/82
--- NOTE | 2018-06-10 22:56 | PDOC PROGRESS REPORT ---
Subjective Progress Note for:: 06/10/18 Subjective:: Less pains I&D site on foot Reason For Visit: CELLULITIS Physical Exam Vital Signs: Temp Pulse Resp BP Pulse Ox 98.8 F 65 16 140/82 H 99 06/10/18 12:28 06/10/18 12:28 06/10/18 12:28 06/10/18 12:28 06/10/18 12:28 Intake & Output 06/09/18 06/10/18 06/11/18 06:59 06:59 06:59 Intake Total 3385 6470 700 Output Total 5 Balance 3380 6470 700 Weight 68.9 kg 70.2 kg Exam: I&D site no drainage. Mildly erythematous Results Laboratory Results: 06/10/18 06:37 06/10/18 06:37 06/10/18 06/10/18 06:37 06:37 WBC 7.0 RBC 3.77 Hgb 11.4 L Hct 33.3 L MCV 89 MCH 30.3 MCHC 34.2 RDW 12.4 Plt Count 170 Seg Neutrophils % 66.5 Lymphocytes % 25.0 Monocytes % 6.1 Eosinophils % 1.9 Basophils % 0.5 Absolute Neutrophils 4.6 Absolute Lymphocytes 1.7 Absolute Monocytes 0.4 Absolute Eosinophils 0.1 Absolute Basophils 0.0 Sodium 144.3 Potassium 3.9 Chloride 108 H Carbon Dioxide 25 Anion Gap 11 BUN 6 L Creatinine 1.03 Est GFR ( Amer) > 60 Est GFR (Non-Af Amer) > 60 Glucose 88 Calcium 8.7 Total Bilirubin 0.5 AST 24 ALT 31 Alkaline Phosphatase 39 Total Protein 5.9 L Albumin 3.3 L 06/08/18 11:15 Foot - Abscess Gram Stain - Final 06/08/18 11:15 Foot - Abscess Wound Culture - Final Aeromonas Hydrophilia Group Klebsiella Pneumoniae No Anaerobic Organisms Impressions: Foot X-Ray 06/06/18 13:34 IMPRESSION: No evidence of retained radiopaque foreign body or acute osseous injury. Assessment & Plan - Diagnosis (1) Puncture wound of left foot Is this a current diagnosis for this admission?: Yes - Time Time Spent with patient: 15-24 minutes - Plan Summary Plan Summary: OK to discharge on PO antibiotics Follow up surgical clinic in 1 week
== END 2018-06-10 15:00 | disposition home or self-care (01) | DRG 605 ==
LOC: ER 12:28 → EH 15:54 → 2N 17:19
PROVIDERS: ADMIT Internal Medicine; ATTEND Internal Medicine
PROC: 0J9R3ZX Drainage of Left Foot Subcutaneous Tissue and Fascia, Percutaneous Approach, Diagnostic (ICD-10-PCS; principal; 2018-06-08 10:00)
DX: S91.332A Puncture wound without foreign body, left foot, initial encounter (principal); L02.612 Cutaneous abscess of left foot; L03.116 Cellulitis of left lower limb; F90.9 Attention-deficit hyperactivity disorder, unspecified type; G62.9 Polyneuropathy, unspecified; B96.1 Klebsiella pneumoniae [K. pneumoniae] as the cause of diseases classified elsewhere; B96.89 Other specified bacterial agents as the cause of diseases classified elsewhere; I89.1 Lymphangitis; W22.09XA Striking against other stationary object, initial encounter; Y93.01 Activity, walking, marching and hiking; Y92.019 Unspecified place in single-family (private) house as the place of occurrence of the external cause; Z83.3 Family history of diabetes mellitus
CPT/HCPCS: 01470; 36415; 80048; 80053; 80202; 81025; 82565; 85025; 85027; 87070; 87075; 87077; 87186; 87205; 96374; 96375; 99284; A6266; J0131; J0330; J1170; J1650; J1885; J2250; J2270; J2405; J2543; J2550; J2704; J3010; J3370; J3490; J7060; J7120

== ENCOUNTER → 2018-06-14 | Outpatient (CLI) | payer OTHER ==
--- NOTE | 2018-06-15 08:47 | RADIOLOGY REPORT (SQ) ---
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 TECHNIQUE: Sagittal and Axial imaging includes T1, T2, STIR and gradient echo sequences. Coronal T2/ HASTE imaging. LIMITATIONS: None. FINDINGS: VISUALIZED UPPER ABDOMEN: Limited evaluation. No acute or suspicious findings suggested. SEGMENTATION: No transitional anatomy. The lowest well-developed disc space is labeled L5-S1. ALIGNMENT: Anatomic. VERTEBRAE: Intact. BONE MARROW: Normal. No marrow replacement or reactive changes. DISC SIGNAL: Decreased T2 weighted intervertebral disc signal at L4-5 and L5-S1 POSTERIOR ELEMENTS: Generally intact. No pars defect evident. HARDWARE: None in the spine. CORD AND CONUS: Normal in size and signal intensity. Conus at the L1 level. SOFT TISSUES: No aortic aneurysm seen. No bulky retroperitoneal adenopathy or mass. No paraspinal mas s or fluid. T12-L1: No central or foraminal stenosis L1-L2: No central or foraminal stenosis. Mild bilateral facet arthropathy. L2-L3: No central or foraminal stenosis. Moderate bilateral facet arthropathy. L3-L4: No central or foraminal stenosis. Moderate bilateral facet arthropathy. L4-L5: Mild diffuse posterior disc bulging is present with moderate bilateral facet and ligament hype rtrophy. Small left foraminal and lateral annular tear, seen as increased signal along the this lester in in the left paracentral and foraminal region. No central stenosis. Mild bilateral inferior ara inal narrowing without exiting L4 nerve root impingement. L5-S1: Mild diffuse posterior disc bulging, mild bilateral facet hypertrophy. No central canal steno sis. No significant foraminal narrowing. Benign hemangioma L5 vertebral body SACRUM: Visualized upper sacrum intact. OTHER: No other significant findings. IMPRESSION: No high-grade central or foraminal stenosis. Multilevel facet arthropathy with mild deg enerative disc changes at L4-5 and L5-S1 TECHNICAL DOCUMENTATION: JOB ID: [id number]- All Rights Reserved Reading location - IP/workstation name: [email or web address]
== END ==
LOC: RAD 19:56
PROVIDERS: ATTEND Internal Medicine
DX: M51.06 Intervertebral disc disorders with myelopathy, lumbar region (principal)
CPT/HCPCS: 72148

== ENCOUNTER 2018-06-25 20:24 | Emergency (ER) | payer OTHER ==
[2018-06-25 20:38] VITALS: BP 135/81
[2018-06-25] MEDS ORDERED: CEFTRIAXONE INJ 1000 MG VIAL IV ONE (21:19)
--- NOTE | 2018-06-25 21:22 | ER Document Report ---
ED Medical Screen (RME) - General Chief Complaint: Foot Pain Stated Complaint: FOOT PAIN/SWOLLEN Time Seen by Provider: 06/25/18 21:15 Mode of Arrival: Ambulatory Information source: Patient Notes: 32-year-old female with history of cellulitis and operative incision and drainage of a left plantar foot abscess after stepping on a nail comes back to the emergency room today after increased swelling redness to the puncture site this morning. She also complains of bilateral lumbar back pain. When she was discharged from [place] she went to [place] for vacation and had to stop taking Cipro because she was vomiting. She was there for 24 hours and given 2 doses of IV antibiotics because she was told that her kidneys were inflamed. TRAVEL OUTSIDE OF THE [place] IN LAST 30 DAYS: No - Related Data Allergies/Adverse Reactions: No Known Allergies Allergy (Verified 06/06/18 15:58) Past Medical History Renal/ Medical History: Denies: Hx Peritoneal Dialysis Physical Exam - Vital signs Vitals: Temp Pulse Resp BP Pulse Ox 98.1 F 78 18 135/81 H 100 06/25/18 20:37 06/25/18 20:37 06/25/18 20:37 06/25/18 20:37 06/25/18 20:37 Course - Vital Signs Vital signs: Temp Pulse Resp BP Pulse Ox 98.1 F 78 18 135/81 H 100 06/25/18 20:37 06/25/18 20:37 06/25/18 20:37 06/25/18 20:37 06/25/18 20:37 Doctor's Discharge - Discharge Referrals: ALVAREZ DUMONT MD [Primary Care Provider] - Follow up as needed
--- NOTE | 2018-06-25 21:48 | RADIOLOGY REPORT (SQ) ---
EXAM DESCRIPTION: FOOT LEFT COMPLETE COMPLETED DATE/TIME: 06/25/2018 9:38 pm REASON FOR STUDY: rule out osteo COMPARISON: 06/06/2018 EXAM PARAMETERS: NUMBER OF VIEWS: Three views. TECHNIQUE: AP, lateral and oblique radiographic images acquired of the left foot. LIMITATIONS: None. FINDINGS: MINERALIZATION: Normal. BONES: No acute fracture or dislocation. No worrisome bone lesions. JOINTS: No effusion. SOFT TISSUES: Mild plantar soft tissue swelling. No radiopaque foreign body. OTHER: No other significant finding. IMPRESSION: No osseous abnormality. TECHNICAL DOCUMENTATION: JOB ID: [id number] [employer]- All Rights Reserved Reading location - IP/workstation name: [employer]
[2018-06-25 22:34] LABS: ABSOLUTE BASOPHILS # (AUTO) 0.1 10^3/uL (0.0-0.2); ABSOLUTE EOSINOPHILS # (AUTO) 0.5 10^3/uL (0.0-0.6); ABSOLUTE LYMPHOCYTES (AUTO) 3.9 10^3/uL (0.5-4.7); ABSOLUTE MONOCYTES (AUTO) 0.5 10^3/uL (0.1-1.4); ABSOLUTE NEUT (AUTO) 4.1 10^3/uL (1.7-8.2); BASOPHILS % (AUTO) 1.2 % (0-2); EOSINOPHILS % (AUTO) 5.9 % (0-6); HEMATOCRIT 38.1 % (36.0-47.0); HEMOGLOBIN 12.7 g/dL (12.0-15.5); LYMPHOCYTES % (AUTO) 42.1 % (13-45); MEAN CORPUSCULAR HEMOGLOBIN 29.4 pg (27.0-33.4); MEAN CORPUSCULAR HGB CONC 33.3 g/dL (32.0-36.0); MEAN CORPUSCULAR VOLUME 88 fl (80-97); PLATELET COUNT 391 10^3/uL (150-450); RED BLOOD COUNT 4.33 10^6/uL (3.72-5.28); RED CELL DISTRIBUTION WIDTH 12.8 % (11.5-14.0); SEGMENTED NEUTROPHILS % (AUTO) 44.8 % (42-78); TOTAL CELLS COUNTED % (AUTO) 100 %; WHITE BLOOD COUNT 9.2 10^3/uL (4.0-10.5)
[2018-06-25 22:58] LABS: APPEARANCE,URINE CLEAR; BILIRUBIN,URINE NEGATIVE (NEGATIVE); COLOR,URINE STRAW; GLUCOSE, URINE NEGATIVE (NEGATIVE); KETONES,URINE NEGATIVE (NEGATIVE); LEUKOCYTE ESTERASE,URINE NEGATIVE (NEGATIVE); NITRITE,URINE NEGATIVE (NEGATIVE); PROTEIN,URINE NEGATIVE (NEGATIVE); URINE SPECIFIC GRAVITY 1.009; UROBILINOGEN,URINE NEGATIVE mg/dL (<2.0)
[2018-06-25 23:02] LABS: ALANINE AMINOTRANSFERASE 31 U/L (9-52); ALBUMIN 4.6 g/dL (3.5-5.0); ALKALINE PHOSPHATASE 77 U/L (38-126); ANION GAP 14 (5-19); ASPARTATE AMINO TRANSFERASE 25 U/L (14-36); BILIRUBIN,DIRECT 0.3 mg/dL (0.0-0.4); BILIRUBIN,TOTAL 0.3 mg/dL (0.2-1.3); BLOOD UREA NITROGEN 13 mg/dL (7-20); CALCIUM 9.6 mg/dL (8.4-10.2); CARBON DIOXIDE 31 mmol/L (22-30); CHLORIDE 97 mmol/L (98-107); GLUCOSE 83 mg/dL (75-110); SODIUM 141.7 mmol/L (137-145); TOTAL PROTEIN 7.5 g/dL (6.3-8.2)
--- NOTE | 2018-06-26 00:05 | ER Document Report ---
ED Extremity Problem, Lower - General Chief Complaint: Foot Pain Stated Complaint: FOOT PAIN/SWOLLEN Time Seen by Provider: 06/25/18 21:15 Mode of Arrival: Ambulatory Notes: Patient presents to emergency department with complaint of possible foot infection. Patient reports recent history of infected left foot for which she was admitted and discharged on 06/10/18. Patient reports she was having some pain earlier this evening. Patient denies any fever, redness or drainage. TRAVEL OUTSIDE OF THE [place] IN LAST 30 DAYS: No - Related Data Allergies/Adverse Reactions: No Known Allergies Allergy (Verified 06/06/18 15:58) Past Medical History - General Information source: Patient - Social History Smoking Status: Current Some Day Smoker Drug Abuse: Marijuana Family History: Reviewed & Not Pertinent Patient has suicidal ideation: No Patient has homicidal ideation: No - Medical History Medical History: Negative Renal/ Medical History: Denies: Hx Peritoneal Dialysis Surgical Hx: Negative - Immunizations Immunizations up to date: Yes Review of Systems - Review of Systems Constitutional: No symptoms reported EENT: No symptoms reported Cardiovascular: No symptoms reported Respiratory: No symptoms reported Gastrointestinal: No symptoms reported Genitourinary: No symptoms reported Female Genitourinary: No symptoms reported Musculoskeletal: See HPI Skin: No symptoms reported Hematologic/Lymphatic: No symptoms reported Neurological/Psychological: No symptoms reported Physical Exam - Vital signs Vitals: Temp Pulse Resp BP Pulse Ox 98.1 F 78 18 135/81 H 100 06/25/18 20:37 06/25/18 20:37 06/25/18 20:37 06/25/18 20:37 06/25/18 20:37 - Notes Notes: PHYSICAL EXAMINATION: GENERAL: Well-appearing, well-nourished and in no acute distress. HEAD: Atraumatic, normocephalic. EYES: Pupils equal round and reactive to light, extraocular movements intact, conjunctiva are normal. ENT: Nares patent, oropharynx clear without exudates. Moist mucous membranes. NECK: Normal range of motion, supple without lymphadenopathy LUNGS: Breath sounds clear to auscultation bilaterally and equal. No wheezes rales or rhonchi. HEART: Regular rate and rhythm without murmurs ABDOMEN: Soft, nontender, nondistended abdomen. No guarding, no rebound. No masses appreciated. Female : deferred Musculoskeletal: Normal range of motion, no pitting or edema. No cyanosis. NEUROLOGICAL: Cranial nerves grossly intact. Normal speech, normal gait. Normal sensory, motor exams PSYCH: Normal mood, normal affect. SKIN: Warm, Dry, normal turgor, no rashes or lesions noted. Healing wound noted to plantar surface of left foot, no drainage or erythema noted. Course - Re-evaluation Re-evalutation: Initial workup was initiated by provider in triage. CBC, comprehensive metabolic panel, urinalysis are all unremarkable. Left foot x-ray shows no acute findings and no evidence of osteomyelitis. Patient was given 1 g of ceftriaxone prior to my assessment. Patient's vital signs are stable patient is without any signs of infection. Patient will be discharged home at this time with plans to continue her follow-up with her primary care provider. - Vital Signs Vital signs: Temp Pulse Resp BP Pulse Ox 98.1 F 78 18 135/81 H 100 06/25/18 20:37 06/25/18 20:37 06/25/18 20:37 06/25/18 20:37 06/25/18 20:37 - Laboratory Result Diagrams: 06/25/18 22:11 06/25/18 22:11 Laboratory results interpreted by me: 06/25/18 22:11 Chloride 97 L Carbon Dioxide 31 H Discharge - Discharge Clinical Impression: Healing wound Condition: Stable Disposition: HOME, SELF-CARE Additional Instructions: The wound on your foot appears to be healing well. Your blood work and urine are all normal today. You were given a dose of Rocephin, ordered by the triage provider. Please follow-up with Dr. Dumont, call him Thursday to schedule a follow -up appointment. Return to the emergency department if you develop any worsening symptoms, increased redness, drainage, streaking from the wound site or develop a fever. Referrals: ALVAREZ DUMONT MD [Primary Care Provider] - Follow up as needed
== END 2018-06-26 00:18 | disposition home or self-care (01) ==
LOC: ER 20:24
DX: Z48.00 Encounter for change or removal of nonsurgical wound dressing (principal); M79.672 Pain in left foot; F17.200 Nicotine dependence, unspecified, uncomplicated
CPT/HCPCS: 99284; 96365; 36415; 85025; 80053; 81001; 73630; J0696